=== PATIENT | female | born 1980 | race Caucasian/White ===

== ENCOUNTER 2017-05-26 04:05 | Emergency (ER) | payer BC, OTHER ==
[~2017-05-26] VITALS: Ht 170.2 cm; Wt 93.8 kg
[~2017-05-26 04:05] MED LIST: AZIT500T5 PO; MULT-658 PO; OXYC1TAB7 PO; POLY17PO5 PO; PREN1TAB60 PO; VENL150C PO; birth control PO
[2017-05-26 04:48] LABS: MICROSCOPIC AUTO
[2017-05-26 04:54] LABS: CULTURE INDICATED? YES
[2017-05-26] MEDS ORDERED: CEFTRIAXONE 1,000 MG IM ONE (05:30)
[2017-05-26] MEDS ORDERED: CEFTRIAXONE 1,000 MG ONE (05:40)
[2017-05-26 05:46] VITALS: BP 131/87
[2017-05-26] MEDS ORDERED: ONDANSETRON ODT 4 MG ONE (06:05)
[2017-05-26] MEDS ORDERED: ONDANSETRON ODT 4 MG PO ONE (06:30)
== END 2017-05-26 05:53 | disposition home or self-care (01) ==
LOC: ED 05:41
DX: N30.01 Acute cystitis with hematuria (principal); Z87.440 Personal history of urinary (tract) infections
CPT/HCPCS: 81001; 87077; 87086; 87186; 96372; 99284; J0696; Q0162